=== PATIENT | male | born 1950 | race Caucasian/White ===

== ENCOUNTER 2020-04-14 13:20 | Inpatient (IN) ==
[2020-04-14] MEDS ORDERED: NS 0.9% 1000 ml BAG 1,000 ML IV ONE (13:31)
[2020-04-14 13:40] LABS: ABS Basophils 0.1 10^3/ul (0-0.2); ABS Eosinophils 0.1 10^3/ul (0-0.6); ABS Lymphocytes 1.9 10^3/ul (1.0-4.8); ABS Monocytes 0.9 10^3/ul (0-0.8); ABS Neutrophils 7.1 10^3/ul (1.5-7.7); Eosinophil % 0.9 %; Hematocrit 52 % (42-52); Hemoglobin 17.1 g/dL (14.0-18.0); Lymphocyte % 18.5 %; Mean Corpuscular HGB Conc 33 g/dL (31-36); Mean Corpuscular Hemoglobin 30 pg (27-31); Mean Corpuscular Volume 91 fL (80-94); Mean Platelet Volume 8.3 fL (7.4-10.4); Nucleated Red Blood Cells % 0.1; Platelet Count 261 10^3/uL (150-450); Red Blood Count 5.69 10^6 /uL (4.18-5.48); Red Cell Distribution Width 14 % (10-15)
[2020-04-14 13:48] LABS: INR 1.02 (0.82-1.09)
[2020-04-14 14:03] LABS: Albumin/Globulin Ratio 1.9 (1-3); Calcium 9.8 mg/dL (8.6-10.3); EGFR African American 98.7 (>60); EGFR Non-African American 81.6 (>60); Globulin 2.7 g/dL (2-4); HDL Cholesterol 51.7 mg/dL; Potassium 4.1 mmol/L (3.5-5.0); Total Bilirubin 1.8 mg/dL (0.2-1.0); Total Protein 7.7 g/dL (6.4-8.9)
[2020-04-14] MEDS ORDERED: Iodixanol (CONTRAST) 320 MG/ML 100 ML SDV IV ONE (14:05)
[2020-04-14] MEDS ORDERED: Ondansetron 4 mg VIAL 2 MG/ML 2 ml VIAL IV PRN (14:46)
[2020-04-14] MEDS ORDERED: Dextrose 50% Syringe 50 ml 25 GM/50 ML SYRINGE IV PUSH PRN (14:50)
[2020-04-14] MEDS ORDERED: Perflutren Lipid Microsphere 3 ML VIAL ONE (15:04)
[2020-04-14] MEDS: Enoxaparin 40 MG/0.4 ML SYR SUBCUT SCH (17:03)
[2020-04-14] MEDS: NS 0.9% 1000 ml BAG 1,000 ML IV SCH (17:04)
[2020-04-15] MEDS: NS 0.9% 1000 ml BAG 1,000 ML IV SCH ×2 (04:13→16:54)
[2020-04-15 06:55] LABS: BUN/Creatinine Ratio 12.7 (8-20); Calcium 8.3 mg/dL (8.6-10.3); EGFR African American 117.7 (>60); EGFR Non-African American 97.2 (>60); Potassium 3.8 mmol/L (3.5-5.0)
[2020-04-15] MEDS: CMCS: OMEGA-3 FATTY ACID 1000 mg(NF) PO SCH (07:56)
[2020-04-15] MEDS: Vitamin THERAPEUTIC TAB PO SCH (07:56)
[2020-04-15] MEDS: Aspirin EC 81 mg TAB.EC (enteric coated) PO SCH (07:56)
[2020-04-15] MEDS: CMCS: SitaGLIPtin 100 mg TAB (NF) PO SCH (07:56)
[2020-04-15 15:06] LABS: Urine Appearance Cloudy; Urine Bilirubin Negative (Negative); Urine Blood Negative (Negative); Urine Color Yellow; Urine Glucose Negative (Negative); Urine Ketones 1+ (Negative); Urine Nitrite Negative (Negative); Urine Protein Negative (Negative); Urine Specific Gravity 1.017 (1.010-1.030); Urine Urobilinogen Negative (Negative)
[2020-04-15] MEDS: Enoxaparin 40 MG/0.4 ML SYR SUBCUT SCH (15:30)
[2020-04-16] MEDS: NS 0.9% 1000 ml BAG 1,000 ML IV SCH (04:36)
[2020-04-16 06:43] LABS: Hematocrit 44 % (42-52); Hemoglobin 15.3 g/dL (14.0-18.0); Mean Corpuscular HGB Conc 35 g/dL (31-36); Mean Corpuscular Hemoglobin 31 pg (27-31); Mean Corpuscular Volume 90 fL (80-94); Mean Platelet Volume 8.3 fL (7.4-10.4); Platelet Count 230 10^3/uL (150-450); Red Blood Count 4.92 10^6 /uL (4.18-5.48); Red Cell Distribution Width 14 % (10-15); White Blood Count 8.3 10^3/uL (3.5-10.8)
[2020-04-16 06:58] LABS: BUN/Creatinine Ratio 8.7 (8-20); Calcium 8.3 mg/dL (8.6-10.3); EGFR African American 137.6 (>60); EGFR Non-African American 113.7 (>60); Potassium 3.6 mmol/L (3.5-5.0)
[2020-04-16 08:19] LABS: ABS Eosinophils 0.1 10^3/ul (0-0.6); ABS Lymphocytes 1.6 10^3/ul (1.0-4.8); ABS Monocytes 0.7 10^3/ul (0-0.8); ABS Neutrophils 5.9 10^3/ul (1.5-7.7); Eosinophil % 1.5 %; Lymphocyte % 18.7 %
[2020-04-16] MEDS: Vitamin THERAPEUTIC TAB PO SCH (08:40)
[2020-04-16] MEDS: Aspirin EC 81 mg TAB.EC (enteric coated) PO SCH (08:40)
[2020-04-16] MEDS: CMCS: SitaGLIPtin 100 mg TAB (NF) PO SCH (08:40)
[2020-04-16] MEDS: CMCS: OMEGA-3 FATTY ACID 1000 mg(NF) PO SCH (10:22)
[2020-04-16] MEDS: Enoxaparin 40 MG/0.4 ML SYR SUBCUT SCH (14:49)
[2020-04-17] MEDS: CMCS: OMEGA-3 FATTY ACID 1000 mg(NF) PO SCH (09:30)
[2020-04-17] MEDS: Vitamin THERAPEUTIC TAB PO SCH (09:30)
[2020-04-17] MEDS: Aspirin EC 81 mg TAB.EC (enteric coated) PO SCH (09:30)
[2020-04-17] MEDS: CMCS: SitaGLIPtin 100 mg TAB (NF) PO SCH (09:31)
[2020-04-17] MEDS ORDERED: Lactated Ringers 1000 ml BAG 1,000 ML IV SCH (11:00)
[2020-04-17] MEDS ORDERED: Iodixanol (CONTRAST) 320 MG/ML 100 ML SDV IV ONE (12:25)
[2020-04-17] MEDS ORDERED: NS 0.9% 1000 ml BAG 1,000 ML IV SCH ×2 (13:15→21:14)
[2020-04-17] MEDS: Enoxaparin 40 MG/0.4 ML SYR SUBCUT SCH (14:54)
[2020-04-18] MEDS: NS 0.9% 1000 ml BAG 1,000 ML IV SCH ×6 (00:22→22:28)
[2020-04-18] MEDS: CMCS: SitaGLIPtin 100 mg TAB (NF) PO SCH (08:39)
[2020-04-18] MEDS: Vitamin THERAPEUTIC TAB PO SCH (08:39)
[2020-04-18] MEDS: CMCS: OMEGA-3 FATTY ACID 1000 mg(NF) PO SCH (08:39)
[2020-04-18] MEDS: Aspirin EC 81 mg TAB.EC (enteric coated) PO SCH (08:39)
[2020-04-18] MEDS ORDERED: Senna TAB 8.6 mg TAB PO PRN (09:05)
[2020-04-18] MEDS ORDERED: Magnesium Hydroxide LIQ 30 ML UDC PO PRN (09:05)
[2020-04-18] MEDS ORDERED: Heparin DRIP 25,000 UNITS BAG 25,000 UNITS/500 ML BAG IV SCH (10:00)
[2020-04-18 10:37] LABS: ABS Eosinophils 0.2 10^3/ul (0-0.6); ABS Lymphocytes 1.5 10^3/ul (1.0-4.8); ABS Monocytes 1.2 10^3/ul (0-0.8); ABS Neutrophils 9.3 10^3/ul (1.5-7.7); Eosinophil % 1.4 %; Hematocrit 46 % (42-52); Hemoglobin 15.4 g/dL (14.0-18.0); Lymphocyte % 11.9 %; Mean Corpuscular HGB Conc 34 g/dL (31-36); Mean Corpuscular Hemoglobin 30 pg (27-31); Mean Corpuscular Volume 89 fL (80-94); Mean Platelet Volume 8.1 fL (7.4-10.4); Platelet Count 261 10^3/uL (150-450); Red Blood Count 5.11 10^6 /uL (4.18-5.48); Red Cell Distribution Width 14 % (10-15); White Blood Count 12.2 10^3/uL (3.5-10.8)
[2020-04-18 11:02] LABS: EGFR African American 142.3 (>60); EGFR Non-African American 117.6 (>60)
[2020-04-18] MEDS: Heparin DRIP 25,000 UNITS BAG 25,000 UNITS/500 ML BAG IV SCH (11:08)
[2020-04-18] MEDS ORDERED: NS 0.9% 500 ml BAG 500 ML IV ONE (20:21)
[2020-04-19] MEDS ORDERED: NS 0.9% 500 ML BAG IV ONE (01:00)
[2020-04-19] MEDS ORDERED: NS 0.9% 500 ml BAG 500 ML IV ONE (03:07)
[2020-04-19] MEDS: Heparin DRIP 25,000 UNITS BAG 25,000 UNITS/500 ML BAG IV SCH (04:44)
[2020-04-19 06:15] LABS: ABS Eosinophils 0.2 10^3/ul (0-0.6); ABS Lymphocytes 1.5 10^3/ul (1.0-4.8); ABS Monocytes 1.1 10^3/ul (0-0.8); ABS Neutrophils 8.5 10^3/ul (1.5-7.7); Eosinophil % 1.9 %; Hematocrit 43 % (42-52); Hemoglobin 15.1 g/dL (14.0-18.0); Lymphocyte % 13.4 %; Mean Corpuscular HGB Conc 35 g/dL (31-36); Mean Corpuscular Hemoglobin 31 pg (27-31); Mean Corpuscular Volume 90 fL (80-94); Mean Platelet Volume 8.1 fL (7.4-10.4); Platelet Count 244 10^3/uL (150-450); Red Blood Count 4.83 10^6 /uL (4.18-5.48); Red Cell Distribution Width 13 % (10-15); White Blood Count 11.4 10^3/uL (3.5-10.8)
[2020-04-19 06:31] LABS: BUN/Creatinine Ratio 17.3 (8-20); Calcium 8.1 mg/dL (8.6-10.3); EGFR African American 190.7 (>60); EGFR Non-African American 157.6 (>60); Potassium 3.3 mmol/L (3.5-5.0)
[2020-04-19] MEDS: NS 0.9% 1000 ml BAG 1,000 ML IV SCH ×2 (07:49→13:38)
[2020-04-19] MEDS: Vitamin THERAPEUTIC TAB PO SCH (07:50)
[2020-04-19] MEDS: CMCS: OMEGA-3 FATTY ACID 1000 mg(NF) PO SCH (07:50)
[2020-04-19] MEDS: Aspirin EC 81 mg TAB.EC (enteric coated) PO SCH (07:50)
[2020-04-19] MEDS: CMCS: SitaGLIPtin 100 mg TAB (NF) PO SCH (07:50)
[2020-04-19] MEDS ORDERED: Digoxin IV 0.5 MG/2 ML AMP (0.25 MG/ML) IV SLOW PU ONE (13:19)
[2020-04-20] MEDS: NS 0.9% 1000 ml BAG 1,000 ML IV SCH (01:02)
[2020-04-20 06:17] LABS: ABS Eosinophils 0.2 10^3/ul (0-0.6); ABS Lymphocytes 1.3 10^3/ul (1.0-4.8); ABS Monocytes 1.3 10^3/ul (0-0.8); ABS Neutrophils 7.8 10^3/ul (1.5-7.7); Eosinophil % 2.3 %; Hematocrit 44 % (42-52); Hemoglobin 14.5 g/dL (14.0-18.0); Mean Corpuscular HGB Conc 33 g/dL (31-36); Mean Corpuscular Hemoglobin 31 pg (27-31); Mean Corpuscular Volume 92 fL (80-94); Mean Platelet Volume 8.1 fL (7.4-10.4); Platelet Count 197 10^3/uL (150-450); Red Blood Count 4.77 10^6 /uL (4.18-5.48); Red Cell Distribution Width 13 % (10-15); White Blood Count 10.7 10^3/uL (3.5-10.8)
[2020-04-20 06:33] LABS: Calcium 8.4 mg/dL (8.6-10.3); Magnesium 1.7 mg/dL (1.9-2.7); Potassium 3.5 mmol/L (3.5-5.0)
[2020-04-20 06:39] LABS: EGFR African American 186.5 (>60); EGFR Non-African American 154.1 (>60)
[2020-04-20] MEDS ORDERED: Magnesium Sulfate 2 gm BAG 2 GM/50 ML BAG IVPB ONE (07:15)
[2020-04-20] MEDS: CMCS: SitaGLIPtin 100 mg TAB (NF) PO SCH (08:54)
[2020-04-20] MEDS: Aspirin EC 81 mg TAB.EC (enteric coated) PO SCH (08:54)
[2020-04-20] MEDS: CMCS: OMEGA-3 FATTY ACID 1000 mg(NF) PO SCH (08:54)
[2020-04-20] MEDS: Vitamin THERAPEUTIC TAB PO SCH (08:54)
[2020-04-20] MEDS ORDERED: Potassium Chlor 20 meq TAB.ER PO ONE (10:02)
[2020-04-20 10:47] VITALS: BP 157/59
== END 2020-04-20 09:44 | DRG 65 ==
LOC: ED 13:20 → MEDTELE 13:20 → OBSVTOIN 14:46 → MEDTELE 16:15
PROVIDERS: ADMIT Student in an Organized Health Care Education/Training Program; ATTEND Internal Medicine

== ENCOUNTER 2020-04-20 09:43 | Inpatient (IN) ==
[2020-04-20] MEDS ORDERED: Magnesium Hydroxide LIQ 30 ML UDC PO PRN (12:14)
[2020-04-20] MEDS ORDERED: Dextrose 50% Syringe 50 ml 25 GM/50 ML SYRINGE IV PUSH PRN (12:34)
[2020-04-21] MEDS: CMC: SitaGLIPtin 100 mg TAB (NF) PO SCH (09:05)
[2020-04-21] MEDS: FATTY ACID PO SCH (09:05)
[2020-04-21] MEDS: OMEGA PO SCH (09:05)
[2020-04-21] MEDS: Aspirin EC 81 mg TAB.EC (enteric coated) PO SCH (09:06)
[2020-04-22 07:48] LABS: ABS Eosinophils 0.3 10^3/ul (0-0.6); ABS Lymphocytes 1.5 10^3/ul (1.0-4.8); ABS Monocytes 1.3 10^3/ul (0-0.8); Eosinophil % 2.9 %; Hematocrit 40 % (42-52); Hemoglobin 13.9 g/dL (14.0-18.0); Lymphocyte % 15.1 %; Mean Corpuscular HGB Conc 35 g/dL (31-36); Mean Corpuscular Hemoglobin 32 pg (27-31); Mean Corpuscular Volume 90 fL (80-94); Mean Platelet Volume 8.2 fL (7.4-10.4); Platelet Count 266 10^3/uL (150-450); Red Cell Distribution Width 13 % (10-15); White Blood Count 10.2 10^3/uL (3.5-10.8)
[2020-04-22 08:09] LABS: Albumin 3.6 g/dL (3.2-5.2); Albumin/Globulin Ratio 1.3 (1-3); BUN/Creatinine Ratio 23.1 (8-20); Calcium 8.5 mg/dL (8.6-10.3); EGFR Non-African American 82.6 (>60); Globulin 2.7 g/dL (2-4); Potassium 3.5 mmol/L (3.5-5.0); Total Bilirubin 1.3 mg/dL (0.2-1.0); Total Protein 6.3 g/dL (6.4-8.9)
[2020-04-22] MEDS: Aspirin EC 81 mg TAB.EC (enteric coated) PO SCH (09:02)
[2020-04-22] MEDS: OMEGA PO SCH (09:07)
[2020-04-22] MEDS: FATTY ACID PO SCH (09:07)
[2020-04-22] MEDS: CMC: SitaGLIPtin 100 mg TAB (NF) PO SCH (09:07)
[2020-04-23] MEDS: Aspirin EC 81 mg TAB.EC (enteric coated) PO SCH (09:51)
[2020-04-23] MEDS: CMC: SitaGLIPtin 100 mg TAB (NF) PO SCH (09:52)
[2020-04-23] MEDS: OMEGA PO SCH (09:52)
[2020-04-23] MEDS: FATTY ACID PO SCH (09:52)
[2020-04-24] MEDS: Aspirin EC 81 mg TAB.EC (enteric coated) PO SCH (10:51)
[2020-04-24] MEDS: FATTY ACID PO SCH (10:52)
[2020-04-24] MEDS: CMC: SitaGLIPtin 100 mg TAB (NF) PO SCH (10:52)
[2020-04-24] MEDS: OMEGA PO SCH (10:52)
[2020-04-25] MEDS: Aspirin EC 81 mg TAB.EC (enteric coated) PO SCH (09:53)
[2020-04-25] MEDS: CMC: SitaGLIPtin 100 mg TAB (NF) PO SCH (09:54)
[2020-04-25] MEDS: OMEGA PO SCH (09:56)
[2020-04-25] MEDS: FATTY ACID PO SCH (09:56)
[2020-04-26] MEDS: Aspirin EC 81 mg TAB.EC (enteric coated) PO SCH (09:28)
[2020-04-26] MEDS: OMEGA PO SCH (09:28)
[2020-04-26] MEDS: FATTY ACID PO SCH (09:28)
[2020-04-26] MEDS: CMC: SitaGLIPtin 100 mg TAB (NF) PO SCH (09:28)
[2020-04-27] MEDS: Aspirin EC 81 mg TAB.EC (enteric coated) PO SCH (09:19)
[2020-04-27] MEDS: CMC: SitaGLIPtin 100 mg TAB (NF) PO SCH (09:20)
[2020-04-27] MEDS: OMEGA PO SCH (09:20)
[2020-04-27] MEDS: FATTY ACID PO SCH (09:20)
[2020-04-27] MEDS: Senna TAB 8.6 mg TAB PO PRN (21:01)
[2020-04-28] MEDS: FATTY ACID PO SCH (09:23)
[2020-04-28] MEDS: OMEGA PO SCH (09:23)
[2020-04-28] MEDS: CMC: SitaGLIPtin 100 mg TAB (NF) PO SCH (09:23)
[2020-04-28] MEDS: Aspirin EC 81 mg TAB.EC (enteric coated) PO SCH (09:23)
[2020-04-29 05:34] LABS: ABS Basophils 0.1 10^3/ul (0-0.2); ABS Eosinophils 0.3 10^3/ul (0-0.6); ABS Lymphocytes 1.7 10^3/ul (1.0-4.8); ABS Monocytes 0.8 10^3/ul (0-0.8); ABS Neutrophils 6.2 10^3/ul (1.5-7.7); Eosinophil % 2.8 %; Hematocrit 44 % (42-52); Hemoglobin 14.7 g/dL (14.0-18.0); Lymphocyte % 18.6 %; Mean Corpuscular HGB Conc 33 g/dL (31-36); Mean Corpuscular Hemoglobin 30 pg (27-31); Mean Corpuscular Volume 91 fL (80-94); Mean Platelet Volume 7.6 fL (7.4-10.4); Platelet Count 363 10^3/uL (150-450); Red Blood Count 4.86 10^6 /uL (4.18-5.48); Red Cell Distribution Width 13 % (10-15); White Blood Count 9.1 10^3/uL (3.5-10.8)
[2020-04-29 05:59] LABS: Albumin 3.7 g/dL (3.2-5.2); Albumin/Globulin Ratio 1.4 (1-3); BUN/Creatinine Ratio 27.3 (8-20); Calcium 8.6 mg/dL (8.6-10.3); EGFR African American 121.2 (>60); EGFR Non-African American 100.2 (>60); Globulin 2.7 g/dL (2-4); Potassium 3.5 mmol/L (3.5-5.0); Total Bilirubin 1.1 mg/dL (0.2-1.0); Total Protein 6.4 g/dL (6.4-8.9)
[2020-04-29] MEDS: FATTY ACID PO SCH (08:19)
[2020-04-29] MEDS: Aspirin EC 81 mg TAB.EC (enteric coated) PO SCH (08:19)
[2020-04-29] MEDS: OMEGA PO SCH (08:19)
[2020-04-29] MEDS: CMC: SitaGLIPtin 100 mg TAB (NF) PO SCH (08:19)
[2020-04-30] MEDS: CMC: SitaGLIPtin 100 mg TAB (NF) PO SCH (09:28)
[2020-04-30] MEDS: OMEGA PO SCH (09:28)
[2020-04-30] MEDS: Aspirin EC 81 mg TAB.EC (enteric coated) PO SCH (09:28)
[2020-04-30] MEDS: FATTY ACID PO SCH (09:28)
[2020-05-01] MEDS: CMC: SitaGLIPtin 100 mg TAB (NF) PO SCH (09:42)
[2020-05-01] MEDS: FATTY ACID PO SCH (09:42)
[2020-05-01] MEDS: Aspirin EC 81 mg TAB.EC (enteric coated) PO SCH (09:42)
[2020-05-01] MEDS: OMEGA PO SCH (09:42)
[2020-05-02] MEDS: Aspirin EC 81 mg TAB.EC (enteric coated) PO SCH (08:35)
[2020-05-02] MEDS: OMEGA PO SCH (08:36)
[2020-05-02] MEDS: CMC: SitaGLIPtin 100 mg TAB (NF) PO SCH (08:36)
[2020-05-02] MEDS: FATTY ACID PO SCH (08:36)
[2020-05-03] MEDS: FATTY ACID PO SCH (08:44)
[2020-05-03] MEDS: Aspirin EC 81 mg TAB.EC (enteric coated) PO SCH (08:44)
[2020-05-03] MEDS: CMC: SitaGLIPtin 100 mg TAB (NF) PO SCH (08:44)
[2020-05-03] MEDS: OMEGA PO SCH (08:44)
[2020-05-04] MEDS: Aspirin EC 81 mg TAB.EC (enteric coated) PO SCH (08:43)
[2020-05-04] MEDS: CMC: SitaGLIPtin 100 mg TAB (NF) PO SCH (08:44)
[2020-05-04] MEDS: OMEGA PO SCH (08:44)
[2020-05-04] MEDS: FATTY ACID PO SCH (08:44)
[2020-05-05] MEDS: Aspirin EC 81 mg TAB.EC (enteric coated) PO SCH (08:26)
[2020-05-05] MEDS: CMC: SitaGLIPtin 100 mg TAB (NF) PO SCH (08:26)
[2020-05-05] MEDS: OMEGA PO SCH (08:27)
[2020-05-05] MEDS: FATTY ACID PO SCH (08:27)
[2020-05-06 06:54] LABS: ABS Basophils 0.1 10^3/ul (0-0.2); ABS Eosinophils 0.2 10^3/ul (0-0.6); ABS Lymphocytes 1.5 10^3/ul (1.0-4.8); ABS Monocytes 0.9 10^3/ul (0-0.8); ABS Neutrophils 7.6 10^3/ul (1.5-7.7); Eosinophil % 2.2 %; Hematocrit 42 % (42-52); Hemoglobin 14.2 g/dL (14.0-18.0); Lymphocyte % 14.4 %; Mean Corpuscular HGB Conc 34 g/dL (31-36); Mean Corpuscular Hemoglobin 31 pg (27-31); Mean Corpuscular Volume 92 fL (80-94); Platelet Count 302 10^3/uL (150-450); Red Blood Count 4.59 10^6 /uL (4.18-5.48); Red Cell Distribution Width 13 % (10-15); White Blood Count 10.3 10^3/uL (3.5-10.8)
[2020-05-06 07:15] LABS: Albumin 3.7 g/dL (3.2-5.2); Albumin/Globulin Ratio 1.5 (1-3); BUN/Creatinine Ratio 21.9 (8-20); Calcium 9.1 mg/dL (8.6-10.3); EGFR African American 128.9 (>60); EGFR Non-African American 106.5 (>60); Globulin 2.5 g/dL (2-4); Potassium 3.8 mmol/L (3.5-5.0); Total Bilirubin 1.1 mg/dL (0.2-1.0); Total Protein 6.2 g/dL (6.4-8.9)
[2020-05-06] MEDS: FATTY ACID PO SCH (09:24)
[2020-05-06] MEDS: Aspirin EC 81 mg TAB.EC (enteric coated) PO SCH (09:24)
[2020-05-06] MEDS: OMEGA PO SCH (09:24)
[2020-05-06] MEDS: CMC: SitaGLIPtin 100 mg TAB (NF) PO SCH (09:25)
[2020-05-07] MEDS: Aspirin EC 81 mg TAB.EC (enteric coated) PO SCH (09:26)
[2020-05-07] MEDS: OMEGA PO SCH (09:27)
[2020-05-07] MEDS: FATTY ACID PO SCH (09:27)
[2020-05-07] MEDS: CMC: SitaGLIPtin 100 mg TAB (NF) PO SCH (09:27)
[2020-05-08] MEDS: OMEGA PO SCH (10:38)
[2020-05-08] MEDS: CMC: SitaGLIPtin 100 mg TAB (NF) PO SCH (10:38)
[2020-05-08] MEDS: FATTY ACID PO SCH (10:38)
[2020-05-08] MEDS: Aspirin EC 81 mg TAB.EC (enteric coated) PO SCH (10:38)
[2020-05-09] MEDS: Aspirin EC 81 mg TAB.EC (enteric coated) PO SCH (10:07)
[2020-05-09] MEDS: FATTY ACID PO SCH (10:07)
[2020-05-09] MEDS: CMC: SitaGLIPtin 100 mg TAB (NF) PO SCH (10:07)
[2020-05-09] MEDS: OMEGA PO SCH (10:07)
[2020-05-10] MEDS: CMC: SitaGLIPtin 100 mg TAB (NF) PO SCH (07:55)
[2020-05-10] MEDS: Aspirin EC 81 mg TAB.EC (enteric coated) PO SCH (07:56)
[2020-05-10] MEDS: OMEGA PO SCH (08:06)
[2020-05-10] MEDS: FATTY ACID PO SCH (08:06)
[2020-05-11] MEDS: Aspirin EC 81 mg TAB.EC (enteric coated) PO SCH (09:46)
[2020-05-11] MEDS: OMEGA PO SCH (09:47)
[2020-05-11] MEDS: CMC: SitaGLIPtin 100 mg TAB (NF) PO SCH (09:47)
[2020-05-11] MEDS: FATTY ACID PO SCH (09:47)
[2020-05-12] MEDS: FATTY ACID PO SCH (09:44)
[2020-05-12] MEDS: OMEGA PO SCH (09:44)
[2020-05-12] MEDS: Aspirin EC 81 mg TAB.EC (enteric coated) PO SCH (09:45)
[2020-05-12] MEDS: CMC: SitaGLIPtin 100 mg TAB (NF) PO SCH (09:45)
[2020-05-13 08:01] LABS: ABS Basophils 0.1 10^3/ul (0-0.2); ABS Eosinophils 0.2 10^3/ul (0-0.6); ABS Lymphocytes 1.5 10^3/ul (1.0-4.8); ABS Monocytes 0.7 10^3/ul (0-0.8); ABS Neutrophils 4.6 10^3/ul (1.5-7.7); Eosinophil % 3.3 %; Hematocrit 42 % (42-52); Hemoglobin 13.9 g/dL (14.0-18.0); Lymphocyte % 21.4 %; Mean Corpuscular HGB Conc 33 g/dL (31-36); Mean Corpuscular Hemoglobin 30 pg (27-31); Mean Corpuscular Volume 91 fL (80-94); Mean Platelet Volume 8.3 fL (7.4-10.4); Platelet Count 275 10^3/uL (150-450); Red Blood Count 4.59 10^6 /uL (4.18-5.48); Red Cell Distribution Width 13 % (10-15); White Blood Count 7.1 10^3/uL (3.5-10.8)
[2020-05-13 08:10] LABS: Albumin 3.6 g/dL (3.2-5.2); Albumin/Globulin Ratio 1.4 (1-3); BUN/Creatinine Ratio 13.2 (8-20); Calcium 8.9 mg/dL (8.6-10.3); EGFR Non-African American 101.7 (>60); Globulin 2.5 g/dL (2-4); Potassium 3.8 mmol/L (3.5-5.0); Total Bilirubin 1.1 mg/dL (0.2-1.0); Total Protein 6.1 g/dL (6.4-8.9)
[2020-05-13] MEDS: Aspirin EC 81 mg TAB.EC (enteric coated) PO SCH (08:14)
[2020-05-13] MEDS: OMEGA PO SCH (08:14)
[2020-05-13] MEDS: FATTY ACID PO SCH (08:14)
[2020-05-13] MEDS: CMC: SitaGLIPtin 100 mg TAB (NF) PO SCH (08:14)
[2020-05-14] MEDS: Aspirin EC 81 mg TAB.EC (enteric coated) PO SCH (07:58)
[2020-05-14] MEDS: CMC: SitaGLIPtin 100 mg TAB (NF) PO SCH (07:59)
[2020-05-14] MEDS: FATTY ACID PO SCH (07:59)
[2020-05-14] MEDS: OMEGA PO SCH (07:59)
[2020-05-15] MEDS: CMC: SitaGLIPtin 100 mg TAB (NF) PO SCH (08:11)
[2020-05-15] MEDS: FATTY ACID PO SCH (08:11)
[2020-05-15] MEDS: Aspirin EC 81 mg TAB.EC (enteric coated) PO SCH (08:11)
[2020-05-15] MEDS: OMEGA PO SCH (08:11)
[2020-05-16] MEDS: CMC: SitaGLIPtin 100 mg TAB (NF) PO SCH (10:42)
[2020-05-16] MEDS: Aspirin EC 81 mg TAB.EC (enteric coated) PO SCH (10:42)
[2020-05-16] MEDS: FATTY ACID PO SCH (10:42)
[2020-05-16] MEDS: OMEGA PO SCH (10:42)
[2020-05-17] MEDS: Aspirin EC 81 mg TAB.EC (enteric coated) PO SCH (09:20)
[2020-05-17] MEDS: FATTY ACID PO SCH (09:21)
[2020-05-17] MEDS: OMEGA PO SCH (09:21)
[2020-05-17] MEDS: CMC: SitaGLIPtin 100 mg TAB (NF) PO SCH (09:21)
[2020-05-18] MEDS: Aspirin EC 81 mg TAB.EC (enteric coated) PO SCH (09:33)
[2020-05-18] MEDS: CMC: SitaGLIPtin 100 mg TAB (NF) PO SCH (09:34)
[2020-05-18] MEDS: FATTY ACID PO SCH (09:34)
[2020-05-18] MEDS: OMEGA PO SCH (09:34)
[2020-05-19] MEDS: Aspirin EC 81 mg TAB.EC (enteric coated) PO SCH (10:41)
[2020-05-19] MEDS: FATTY ACID PO SCH (10:41)
[2020-05-19] MEDS: OMEGA PO SCH (10:41)
[2020-05-19] MEDS: CMC: SitaGLIPtin 100 mg TAB (NF) PO SCH (10:42)
[2020-05-20 05:51] LABS: ABS Basophils 0.1 10^3/ul (0-0.2); ABS Eosinophils 0.3 10^3/ul (0-0.6); ABS Lymphocytes 1.6 10^3/ul (1.0-4.8); ABS Monocytes 0.8 10^3/ul (0-0.8); ABS Neutrophils 4.3 10^3/ul (1.5-7.7); Eosinophil % 3.9 %; Hematocrit 41 % (42-52); Hemoglobin 13.9 g/dL (14.0-18.0); Lymphocyte % 23.1 %; Mean Corpuscular HGB Conc 34 g/dL (31-36); Mean Corpuscular Hemoglobin 30 pg (27-31); Mean Corpuscular Volume 90 fL (80-94); Mean Platelet Volume 8.5 fL (7.4-10.4); Nucleated Red Blood Cells % 0.1; Platelet Count 239 10^3/uL (150-450); Red Cell Distribution Width 13 % (10-15); White Blood Count 7.1 10^3/uL (3.5-10.8)
[2020-05-20 05:55] LABS: Albumin 3.7 g/dL (3.2-5.2); Albumin/Globulin Ratio 1.7 (1-3); Calcium 8.9 mg/dL (8.6-10.3); EGFR African American 117.7 (>60); EGFR Non-African American 97.2 (>60); Globulin 2.2 g/dL (2-4); Potassium 3.7 mmol/L (3.5-5.0); Total Bilirubin 0.9 mg/dL (0.2-1.0); Total Protein 5.9 g/dL (6.4-8.9)
[2020-05-20] MEDS: Aspirin EC 81 mg TAB.EC (enteric coated) PO SCH (08:54)
[2020-05-20] MEDS: OMEGA PO SCH (08:54)
[2020-05-20] MEDS: FATTY ACID PO SCH (08:54)
[2020-05-20] MEDS: CMC: SitaGLIPtin 100 mg TAB (NF) PO SCH (08:54)
[2020-05-21] MEDS: Aspirin EC 81 mg TAB.EC (enteric coated) PO SCH (09:45)
[2020-05-21] MEDS: OMEGA PO SCH (09:46)
[2020-05-21] MEDS: FATTY ACID PO SCH (09:46)
[2020-05-21] MEDS: CMC: SitaGLIPtin 100 mg TAB (NF) PO SCH (09:46)
[2020-05-22] MEDS: OMEGA PO SCH (09:31)
[2020-05-22] MEDS: FATTY ACID PO SCH (09:31)
[2020-05-22] MEDS: Aspirin EC 81 mg TAB.EC (enteric coated) PO SCH (09:31)
[2020-05-22] MEDS: CMC: SitaGLIPtin 100 mg TAB (NF) PO SCH (09:31)
[2020-05-22] MEDS: Senna TAB 8.6 mg TAB PO PRN (21:01)
[2020-05-23] MEDS: CMC: SitaGLIPtin 100 mg TAB (NF) PO SCH (07:21)
[2020-05-23] MEDS: OMEGA PO SCH (07:22)
[2020-05-23] MEDS: FATTY ACID PO SCH (07:22)
[2020-05-23] MEDS: Aspirin EC 81 mg TAB.EC (enteric coated) PO SCH (07:22)
[2020-05-24] MEDS: Aspirin EC 81 mg TAB.EC (enteric coated) PO SCH (08:05)
[2020-05-24] MEDS: CMC: SitaGLIPtin 100 mg TAB (NF) PO SCH (08:05)
[2020-05-24] MEDS: OMEGA PO SCH (08:06)
[2020-05-24] MEDS: FATTY ACID PO SCH (08:06)
[2020-05-25] MEDS: FATTY ACID PO SCH (08:01)
[2020-05-25] MEDS: OMEGA PO SCH (08:01)
[2020-05-25] MEDS: CMC: SitaGLIPtin 100 mg TAB (NF) PO SCH (08:01)
[2020-05-25] MEDS: Aspirin EC 81 mg TAB.EC (enteric coated) PO SCH (08:01)
[2020-05-26] MEDS: Aspirin EC 81 mg TAB.EC (enteric coated) PO SCH (08:40)
[2020-05-26] MEDS: OMEGA PO SCH (08:41)
[2020-05-26] MEDS: FATTY ACID PO SCH (08:41)
[2020-05-26] MEDS: CMC: SitaGLIPtin 100 mg TAB (NF) PO SCH (08:42)
[2020-05-27 07:16] LABS: ABS Basophils 0.1 10^3/ul (0-0.2); ABS Eosinophils 0.3 10^3/ul (0-0.6); ABS Lymphocytes 1.5 10^3/ul (1.0-4.8); ABS Monocytes 0.7 10^3/ul (0-0.8); ABS Neutrophils 4.1 10^3/ul (1.5-7.7); Eosinophil % 4.8 %; Hematocrit 41 % (42-52); Lymphocyte % 22.1 %; Mean Corpuscular HGB Conc 34 g/dL (31-36); Mean Corpuscular Hemoglobin 31 pg (27-31); Mean Corpuscular Volume 90 fL (80-94); Mean Platelet Volume 8.1 fL (7.4-10.4); Platelet Count 260 10^3/uL (150-450); Red Blood Count 4.56 10^6 /uL (4.18-5.48); Red Cell Distribution Width 13 % (10-15); White Blood Count 6.6 10^3/uL (3.5-10.8)
[2020-05-27 07:23] LABS: Albumin 3.9 g/dL (3.2-5.2); Albumin/Globulin Ratio 1.7 (1-3); BUN/Creatinine Ratio 13.8 (8-20); Calcium 8.9 mg/dL (8.6-10.3); EGFR Non-African American 95.8 (>60); Globulin 2.3 g/dL (2-4); Potassium 3.7 mmol/L (3.5-5.0); Total Bilirubin 1.1 mg/dL (0.2-1.0); Total Protein 6.2 g/dL (6.4-8.9)
[2020-05-27] MEDS: CMC: SitaGLIPtin 100 mg TAB (NF) PO SCH (09:46)
[2020-05-27] MEDS: FATTY ACID PO SCH (09:46)
[2020-05-27] MEDS: OMEGA PO SCH (09:46)
[2020-05-27] MEDS: Aspirin EC 81 mg TAB.EC (enteric coated) PO SCH (09:47)
[2020-05-28] MEDS: OMEGA PO SCH (08:35)
[2020-05-28] MEDS: CMC: SitaGLIPtin 100 mg TAB (NF) PO SCH (08:35)
[2020-05-28] MEDS: FATTY ACID PO SCH (08:35)
[2020-05-28] MEDS: Aspirin EC 81 mg TAB.EC (enteric coated) PO SCH (08:36)
[2020-05-29] MEDS: OMEGA PO SCH (08:38)
[2020-05-29] MEDS: CMC: SitaGLIPtin 100 mg TAB (NF) PO SCH (08:38)
[2020-05-29] MEDS: Aspirin EC 81 mg TAB.EC (enteric coated) PO SCH (08:38)
[2020-05-29] MEDS: FATTY ACID PO SCH (08:38)
[2020-05-30] MEDS: FATTY ACID PO SCH (08:02)
[2020-05-30] MEDS: OMEGA PO SCH (08:02)
[2020-05-30] MEDS: Aspirin EC 81 mg TAB.EC (enteric coated) PO SCH (08:02)
[2020-05-30] MEDS: CMC: SitaGLIPtin 100 mg TAB (NF) PO SCH (08:02)
[2020-05-31] MEDS: OMEGA PO SCH (09:00)
[2020-05-31] MEDS: FATTY ACID PO SCH (09:00)
[2020-05-31] MEDS: CMC: SitaGLIPtin 100 mg TAB (NF) PO SCH (09:00)
[2020-05-31] MEDS: Aspirin EC 81 mg TAB.EC (enteric coated) PO SCH (09:00)
[2020-06-01] MEDS: FATTY ACID PO SCH (08:51)
[2020-06-01] MEDS: Aspirin EC 81 mg TAB.EC (enteric coated) PO SCH (08:51)
[2020-06-01] MEDS: OMEGA PO SCH (08:51)
[2020-06-01] MEDS: CMC: SitaGLIPtin 100 mg TAB (NF) PO SCH (08:51)
[2020-06-02] MEDS: CMC: SitaGLIPtin 100 mg TAB (NF) PO SCH (08:13)
[2020-06-02] MEDS: OMEGA PO SCH (08:14)
[2020-06-02] MEDS: Aspirin EC 81 mg TAB.EC (enteric coated) PO SCH (08:14)
[2020-06-02] MEDS: FATTY ACID PO SCH (08:14)
[2020-06-03 04:33] LABS: ABS Basophils 0.1 10^3/ul (0-0.2); ABS Eosinophils 0.4 10^3/ul (0-0.6); ABS Lymphocytes 1.9 10^3/ul (1.0-4.8); Eosinophil % 4.5 %; Hematocrit 41 % (42-52); Hemoglobin 13.7 g/dL (14.0-18.0); Mean Corpuscular HGB Conc 34 g/dL (31-36); Mean Corpuscular Hemoglobin 30 pg (27-31); Mean Corpuscular Volume 90 fL (80-94); Mean Platelet Volume 8.3 fL (7.4-10.4); Platelet Count 277 10^3/uL (150-450); Red Blood Count 4.53 10^6 /uL (4.18-5.48); Red Cell Distribution Width 13 % (10-15); White Blood Count 8.3 10^3/uL (3.5-10.8)
[2020-06-03 04:49] LABS: Albumin 3.8 g/dL (3.2-5.2); Albumin/Globulin Ratio 1.6 (1-3); BUN/Creatinine Ratio 18.1 (8-20); Calcium 8.7 mg/dL (8.6-10.3); EGFR African American 111.2 (>60); EGFR Non-African American 91.9 (>60); Globulin 2.4 g/dL (2-4); Potassium 3.7 mmol/L (3.5-5.0); Total Bilirubin 0.8 mg/dL (0.2-1.0); Total Protein 6.2 g/dL (6.4-8.9)
[2020-06-03] MEDS: Aspirin EC 81 mg TAB.EC (enteric coated) PO SCH (09:00)
[2020-06-03] MEDS: OMEGA PO SCH (09:01)
[2020-06-03] MEDS: CMC: SitaGLIPtin 100 mg TAB (NF) PO SCH (09:01)
[2020-06-03] MEDS: FATTY ACID PO SCH (09:01)
[2020-06-04] MEDS: Aspirin EC 81 mg TAB.EC (enteric coated) PO SCH (08:08)
[2020-06-04] MEDS: OMEGA PO SCH (08:08)
[2020-06-04] MEDS: FATTY ACID PO SCH (08:08)
[2020-06-04] MEDS: CMC: SitaGLIPtin 100 mg TAB (NF) PO SCH (08:47)
[2020-06-04] MEDS ORDERED: SitaGLIPtin 25mg TAB (NF) 25 MG TAB PO ONE (09:00)
[2020-06-05] MEDS: Aspirin EC 81 mg TAB.EC (enteric coated) PO SCH (08:07)
[2020-06-05] MEDS: OMEGA PO SCH (08:07)
[2020-06-05] MEDS: FATTY ACID PO SCH (08:07)
[2020-06-05] MEDS: CMC: SitaGLIPtin 100 mg TAB (NF) PO SCH (10:11)
[2020-06-06] MEDS: FATTY ACID PO SCH (07:33)
[2020-06-06] MEDS: OMEGA PO SCH (07:33)
[2020-06-06] MEDS: Aspirin EC 81 mg TAB.EC (enteric coated) PO SCH (07:33)
[2020-06-06] MEDS: CMC: SitaGLIPtin 100 mg TAB (NF) PO SCH (07:35)
[2020-06-07] MEDS: Aspirin EC 81 mg TAB.EC (enteric coated) PO SCH (09:07)
[2020-06-07] MEDS: OMEGA PO SCH (09:08)
[2020-06-07] MEDS: CMC: SitaGLIPtin 100 mg TAB (NF) PO SCH (09:08)
[2020-06-07] MEDS: FATTY ACID PO SCH (09:08)
[2020-06-08] MEDS: FATTY ACID PO SCH (07:36)
[2020-06-08] MEDS: Aspirin EC 81 mg TAB.EC (enteric coated) PO SCH (07:36)
[2020-06-08] MEDS: OMEGA PO SCH (07:36)
[2020-06-08] MEDS: CMC: SitaGLIPtin 100 mg TAB (NF) PO SCH (07:36)
[2020-06-09] MEDS: CMC: SitaGLIPtin 100 mg TAB (NF) PO SCH (07:29)
[2020-06-09] MEDS: Aspirin EC 81 mg TAB.EC (enteric coated) PO SCH (07:30)
[2020-06-09] MEDS: OMEGA PO SCH (07:30)
[2020-06-09] MEDS: FATTY ACID PO SCH (07:30)
[2020-06-10 07:49] LABS: ABS Basophils 0.1 10^3/ul (0-0.2); ABS Eosinophils 0.3 10^3/ul (0-0.6); ABS Lymphocytes 1.4 10^3/ul (1.0-4.8); ABS Monocytes 0.6 10^3/ul (0-0.8); ABS Neutrophils 4.8 10^3/ul (1.5-7.7); Hematocrit 44 % (42-52); Hemoglobin 14.5 g/dL (14.0-18.0); Lymphocyte % 19.8 %; Mean Corpuscular HGB Conc 33 g/dL (31-36); Mean Corpuscular Hemoglobin 30 pg (27-31); Mean Corpuscular Volume 90 fL (80-94); Mean Platelet Volume 8.3 fL (7.4-10.4); Platelet Count 289 10^3/uL (150-450); Red Blood Count 4.86 10^6 /uL (4.18-5.48); Red Cell Distribution Width 14 % (10-15); White Blood Count 7.3 10^3/uL (3.5-10.8)
[2020-06-10 08:02] LABS: Albumin/Globulin Ratio 1.7 (1-3); BUN/Creatinine Ratio 13.3 (8-20); EGFR African American 124.9 (>60); EGFR Non-African American 103.3 (>60); Globulin 2.4 g/dL (2-4); Potassium 3.7 mmol/L (3.5-5.0); Total Bilirubin 1.1 mg/dL (0.2-1.0); Total Protein 6.4 g/dL (6.4-8.9)
[2020-06-10] MEDS: CMC: SitaGLIPtin 100 mg TAB (NF) PO SCH (08:10)
[2020-06-10] MEDS: Aspirin EC 81 mg TAB.EC (enteric coated) PO SCH (08:10)
[2020-06-10] MEDS: FATTY ACID PO SCH (08:10)
[2020-06-10] MEDS: OMEGA PO SCH (08:10)
[2020-06-11] MEDS: OMEGA PO SCH (08:29)
[2020-06-11] MEDS: Aspirin EC 81 mg TAB.EC (enteric coated) PO SCH (08:29)
[2020-06-11] MEDS: FATTY ACID PO SCH (08:29)
[2020-06-11] MEDS: CMC: SitaGLIPtin 100 mg TAB (NF) PO SCH (08:31)
[2020-06-12] MEDS: CMC: SitaGLIPtin 100 mg TAB (NF) PO SCH (08:13)
[2020-06-12] MEDS: OMEGA PO SCH (08:14)
[2020-06-12] MEDS: FATTY ACID PO SCH (08:14)
[2020-06-12] MEDS: Aspirin EC 81 mg TAB.EC (enteric coated) PO SCH (08:14)
[2020-06-13] MEDS: CMC: SitaGLIPtin 100 mg TAB (NF) PO SCH (08:16)
[2020-06-13] MEDS: FATTY ACID PO SCH (08:16)
[2020-06-13] MEDS: Aspirin EC 81 mg TAB.EC (enteric coated) PO SCH (08:16)
[2020-06-13] MEDS: OMEGA PO SCH (08:16)
[2020-06-14] MEDS: OMEGA PO SCH (09:42)
[2020-06-14] MEDS: CMC: SitaGLIPtin 100 mg TAB (NF) PO SCH (09:42)
[2020-06-14] MEDS: FATTY ACID PO SCH (09:42)
[2020-06-14] MEDS: Aspirin EC 81 mg TAB.EC (enteric coated) PO SCH (09:42)
[2020-06-15 06:46] VITALS: BP 137/61
[2020-06-15] MEDS: Aspirin EC 81 mg TAB.EC (enteric coated) PO SCH (08:54)
[2020-06-15] MEDS: OMEGA PO SCH (08:54)
[2020-06-15] MEDS: FATTY ACID PO SCH (08:54)
[2020-06-15] MEDS: CMC: SitaGLIPtin 100 mg TAB (NF) PO SCH (08:54)
== END 2020-06-15 11:00 | disposition home health service (06) | DRG 57 ==
LOC: PMRU 11:25
PROVIDERS: ADMIT Physical Medicine & Rehabilitation; ATTEND Physical Medicine & Rehabilitation